=== PATIENT | male | born 1960 | race Caucasian/White ===

== ENCOUNTER → 2024-05-24 16:27 | Outpatient (REF) | payer OTHER, SELFPAY | LOC: RAD 16:27 | PROVIDERS: ATTENDING PHYSICIAN Family Medicine | DX: S46.011S Strain of muscle(s) and tendon(s) of the rotator cuff of right shoulder, sequela (principal) | CPT/HCPCS: 73030 ==

== ENCOUNTER → 2024-06-16 06:58 | Outpatient (REF) | payer OTHER, SELFPAY | LOC: PAVMRI 06:58 | PROVIDERS: ATTENDING PHYSICIAN Specialist; FAMILY PHYSICIAN Family Medicine | DX: M25.511 Pain in right shoulder (principal) | CPT/HCPCS: 73221 ==